=== PATIENT | male | born 1995 | race Caucasian/White ===

== ENCOUNTER 2022-03-14 08:50 | Emergency (ER) | payer SELFPAY ==
[~2022-03-14] VITALS: Ht 172.7 cm; Wt 76.0 kg
[2022-03-14] MEDS ORDERED: IBUPROFEN 600MG TABLET PO ONE (09:45)
[2022-03-14 10:01] VITALS: BP 138/93
[2022-03-14] MEDS ORDERED: IBUP-2029 MT (10:04)
== END 2022-03-14 10:27 | disposition home or self-care (01) ==
LOC: ER 08:50
DX: R07.89 Other chest pain (principal); F17.200 Nicotine dependence, unspecified, uncomplicated; F12.10 Cannabis abuse, uncomplicated; Z13.9 Encounter for screening, unspecified
CPT/HCPCS: 71045; 82962; 93005; 99283

== ENCOUNTER 2022-03-16 14:15 | Emergency (ER) | payer OTHER ==
[~2022-03-16] VITALS: Ht 167.6 cm; Wt 70.0 kg
[~2022-03-16 14:15] MED LIST: IBUP-2029 MT
[2022-03-16 14:25] VITALS: BP 117/78
[2022-03-16 16:55] LABS: BASOPHILS % 0.6 % (0.0-2.0); EOSINOPHILS % 1.1 % (0.0-5.0); HEMATOCRIT. 44.5 % (42.0-52.0); HEMOGLOBIN. 15.4 g/dL (14.0-18.0); LYMPHOCYTES % 35.8 % (20.0-50.0); MEAN CORPUSCULAR HEMOGLOBIN 28.6 pg (28.0-32.0); MEAN CORPUSCULAR VOLUME 82.8 fL (80.0-94.0); MEAN PLATELET VOLUME 7.6 fl (7.4-10.4); MONOCYTES % 6.9 % (2.0-8.0); NEUTROPHILS % 55.6 % (40.0-76.0); PLATELET 307 x1000/uL (130-400); RED BLOOD CELL COUNT 5.37 mill/uL (4.7-6.1); RED CELL DISTRIBUTION WIDTH 13.3 % (11.6-14.6)
[2022-03-16 17:05] LABS: CHLORIDE 104 mEq/L (98-107)
[2022-03-16] MEDS ORDERED: IBUP-2029 MT (21:54)
== END 2022-03-16 22:03 | disposition home or self-care (01) ==
LOC: ER 14:15
DX: R07.89 Other chest pain (principal); F12.10 Cannabis abuse, uncomplicated
CPT/HCPCS: 36415; 71045; 80053; 84484; 85025; 93005; 99285